=== PATIENT | female | born 1955 | race Caucasian/White ===

== ENCOUNTER 2016-06-19 17:13 | Emergency (ER) | payer BC ==
[~2016-06-19] VITALS: Ht 172.7 cm; Wt 72.6 kg
[~2016-06-19 17:13] MED LIST: ADVIL; MES400T; PROZAC
[2016-06-19 18:51] LABS: Basophils # (auto) 0 uL; Basophils % (auto) 0.3 % (0.0-2.0); Eosinophils # (auto) 0 uL; Hematocrit 47.7 % (36.0-46.0); Hemoglobin 15.5 g/dL (12.2-16.2); Lymphocytes # (auto) 2.3 uL; Lymphocytes % (auto) 35.4 % (10.0-50.0); Mean Corpuscular Hemoglobin 31.3 pg (28.0-32.0); Mean Corpuscular Hgb Conc. 32.6 g/dL (32.0-36.0); Mean Platelet Volume 7.4 fL (7.4-10.4); Monocytes # (auto) 0.3 uL; Monocytes % (auto) 4.1 % (0.0-12.0); Neutrophils # (auto) 3.9 uL; Neutrophils % (auto) 60.2 % (37.0-80.0); Platelet Count (auto) 436 10^3/uL (140-450); White Blood Cell 6.6 10^3/uL (4.4-10.8)
[2016-06-19 19:06] LABS: Albumin 3.9 g/dL (3.4-5.0); Calcium 8.3 mg/dL (8.5-10.1); Magnesium 2.2 mg/dL (1.6-2.6); Potassium 4.1 mmol/L (3.5-5.1)
[2016-06-19 19:08] LABS: BUN/Creatinine Ratio 12.3
[2016-06-19 19:12] LABS: Bilirubin, Total 0.5 mg/dL (0.2-1.0); Total Protein 8.3 g/dL (6.4-8.2)
[2016-06-19] MEDS ORDERED: THIAMINE INJ 100 MG, MULTIPLE VITAMIN 10 ML, FOLIC ACID 1 MG, MAGNESIUM SULF SDV 50% 8 ... IV ONE ×5 (19:15)
[2016-06-19 21:40] VITALS: BP 122/75
== END 2016-06-19 23:01 | disposition home or self-care (01) ==
LOC: EDUNIT# 17:13 → ER 17:18
DX: I47.1 Supraventricular tachycardia (principal); F10.129 Alcohol abuse with intoxication, unspecified; I10 Essential (primary) hypertension; K51.90 Ulcerative colitis, unspecified, without complications
CPT/HCPCS: 36415; 80053; 80320; 83735; 84484; 85025; 85049; 93005; 94761; 96365; 96366; 99285; J3411; J3475; J7030

== ENCOUNTER → 2020-09-17 | Day surgery (SDC) | payer BC ==
[~2020-09-17] VITALS: Ht 170.2 cm; Wt 72.6 kg
[~2020-09-17] MED LIST changes: -ADVIL; +ATOR20TA PO; +BACL20TA PO; +CHOL200029 PO; +GLYCOPYRROLATE 0.2 MG/ML 1ML VIAL ONE; +HYDROmorphone HCL 2 MG/ML VL IV PRN; +LACTATED RINGER'S 1,000 ML IV SCH; -MES400T; +METO-169 PO; +MIDAZOLAM HCL 1MG/1ML-2 ML VIAL ONE; +MONT5CHW23 PO; +NEOSTIGMINE 1 MG/ML INJ (10mg/10ML VIAL) IV ONE; +ONDANSETRON HCL 4 MG/2 ML VIAL IV ONE; +ONDANSETRON HCL 4 MG/2 ML VIAL IV PRN; +OXYC325T14 PO; +PROPOFOL 10 MG/ML 20 ML IV ONE; -PROZAC; +ROCURONIUM 10MG/ML 10ML VIAL IV ONE; +SERT-160 PO; +ceFAZolin 1GM/50ML 50 ML IV ONE; +fentaNYL CITRATE 100 MCG/2 ML VL ONE
[2020-09-17 07:33] LABS: Basophils # (auto) 0 10 ^3/uL (0-0.2); Basophils % (auto) 0.4 % (0.0-2.0); Eosinophils # (auto) 0.1 10 ^3/uL (0-0.8); Hematocrit 38.2 % (36.0-46.0); Hemoglobin 12.8 g/dL (12.2-16.2); Lymphocytes # (auto) 2.6 10 ^3/uL (0.4-5.4); Lymphocytes % (auto) 39.5 % (10.0-50.0); Mean Corpuscular Hemoglobin 30.7 pg (28.0-32.0); Mean Corpuscular Hgb Conc. 33.5 g/dL (32.0-36.0); Mean Corpuscular Volume 91.8 fL (80.0-100.0); Monocytes # (auto) 0.7 10 ^3/uL (0-1.3); Monocytes % (auto) 10.8 % (0.0-12.0); Neutrophils # (auto) 3.2 10 ^3/uL (1.6-8.6); Neutrophils % (auto) 47.3 % (37.0-80.0); Platelet Count (auto) 229 10^3/uL (140-450); Red Blood Cells 4.15 10^6/uL (4.0-5.20); Red Cell Distribution Width 13.6 % (11.8-14.3); White Blood Cell 6.7 10^3/uL (4.4-10.8)
[2020-09-17 07:48] LABS: INR 0.99 (0.9-1.15)
[2020-09-17 10:40] VITALS: BP 118/43
== END | disposition home or self-care (01) ==
LOC: SUR 06:16
PROVIDERS: ATTEND Obstetrics & Gynecology
DX: N85.00 Endometrial hyperplasia, unspecified (principal); E78.00 Pure hypercholesterolemia, unspecified; I10 Essential (primary) hypertension; F32.9 Major depressive disorder, single episode, unspecified; F99 Mental disorder, not otherwise specified; F41.9 Anxiety disorder, unspecified; Z98.890 Other specified postprocedural states; Z79.899 Other long term (current) drug therapy
CPT/HCPCS: 36415; 85025; 85610; 86850; 86900; 86901; J0690; J2250; J2405; J2704

== ENCOUNTER 2023-12-19 15:41 | Inpatient (IN) | payer BC ==
[~2023-12-19] VITALS: Ht 172.7 cm; Wt 78.2 kg
[~2023-12-19 15:41] MED LIST changes: -GLYCOPYRROLATE 0.2 MG/ML 1ML VIAL ONE; -HYDROmorphone HCL 2 MG/ML VL IV PRN; -LACTATED RINGER'S 1,000 ML IV SCH; -METO-169 PO; +METO-289 PO; -MIDAZOLAM HCL 1MG/1ML-2 ML VIAL ONE; +MONT5CHW12 PO; -MONT5CHW23 PO; -NEOSTIGMINE 1 MG/ML INJ (10mg/10ML VIAL) IV ONE; -ONDANSETRON HCL 4 MG/2 ML VIAL IV ONE; -ONDANSETRON HCL 4 MG/2 ML VIAL IV PRN; -PROPOFOL 10 MG/ML 20 ML IV ONE; -ROCURONIUM 10MG/ML 10ML VIAL IV ONE; -ceFAZolin 1GM/50ML 50 ML IV ONE; -fentaNYL CITRATE 100 MCG/2 ML VL ONE
[2023-12-19 17:20] LABS: Alanine Aminotransferase 184 U/L (7-40); Albumin 2.5 g/dL (3.2-4.8); Alkaline Phosphatase 341 U/L (46-116); Anion Gap 12 (5-15); Aspartate Aminotransferase 268 U/L (13-40); BUN/Creatinine Ratio 14.6 (10.0-20.0); Bilirubin, Total 4.6 mg/dL (0.2-1.0); Blood Urea Nitrogen 14 mg/dL (9-23); Calcium 8.3 mg/dL (8.7-10.4); Carbon Dioxide 24 mmol/L (20-30); Chloride 94 mmol/L (98-107); Glucose 116 mg/dL (74-106); Lipase 31 U/L (12-53); Magnesium 1.7 mg/dL (1.6-2.6); Potassium 2.9 mmol/L (3.5-5.1); Sodium 130 mmol/L (136-145); Total Protein 6.5 g/dL (5.7-8.2)
[2023-12-19 17:26] LABS: Lactic Acid w/Reflex 2.8 mmol/L (0.4-2.0)
[2023-12-19] MEDS: LACTULOSE 20Gm/30ML SOLN PO ONE (17:44)
[2023-12-19 17:45] LABS: Blood Alcohol < 3.0 mg/dL (<10)
[2023-12-19 18:34] LABS: Basophils # (auto) 0 10 ^3/uL (0-0.2); Basophils % (auto) 0.4 % (0.0-2.0); Eosinophils # (auto) 0 10 ^3/uL (0-0.8); Eosinophils % (auto) 0.1 % (0.0-7.0); Hematocrit 33.2 % (36.0-46.0); Lymphocytes # (auto) 0.7 10 ^3/uL (0.4-5.4); Lymphocytes % (auto) 14.8 % (10.0-50.0); Mean Corpuscular Hemoglobin 39.8 pg (28.0-32.0); Mean Corpuscular Volume 120.5 fL (80.0-100.0); Monocytes # (auto) 0.5 10 ^3/uL (0-1.3); Monocytes % (auto) 9.4 % (0.0-12.0); Neutrophils # (auto) 3.8 10 ^3/uL (1.6-8.6); Neutrophils % (auto) 75.3 % (37.0-80.0); Nucleated Red Blood Cells % 0.1 %; Red Blood Cells 2.75 10^6/uL (4.0-5.20); Red Cell Distribution Width 14.8 % (11.8-14.3)
[2023-12-19 18:41] LABS: Anisocytosis Slight; Macrocytosis Marked; Platelet Estimate Decreased
[2023-12-19 18:42] LABS: Stomatocytes Few
[2023-12-19] MEDS: PIPERACILLIN-TAZOB 3.375GM 100 ML IV ONE (19:45)
[2023-12-19] MEDS ORDERED: ACETAMINOPHEN 325 MG TAB PO PRN (21:15)
[2023-12-19] MEDS ORDERED: NITROGLYCERIN 0.4 MG SL TAB SL PRN (21:15)
[2023-12-19] MEDS: POTASSIUM CHL 20 Meq TABLET PO ONE (21:49)
[2023-12-19] MEDS: SODIUM CHLORIDE 0.9% 1,000 ML IV SCH (21:57)
[2023-12-20] VITALS (9 sets, daily range): BP systolic 100–118; BP diastolic 57–72; PULSE 73–89; RESP 16–20; TEMP 97.7–98.4; O2SAT 89–99
[2023-12-20] MEDS: LACTULOSE 20Gm/30ML SOLN PO SCH (01:19)
[2023-12-20] MEDS: DOXYCYCLINE 100 MG TAB/CAP PO SCH (01:19)
[2023-12-20] MEDS: GABAPENTIN 400 MG CAP PO SCH (01:19)
[2023-12-20] MEDS: ONDANSETRON HCL 4 MG/2 ML VIAL IV PRN (01:20)
[2023-12-20] MEDS: chlordiazePOXIDE HCL 25 MG CAP PO PRN (01:20)
[2023-12-20] MEDS: HYDROcodone-ACET 5/325MG TAB PO PRN (01:20)
[2023-12-20] MEDS: MORPHINE SULFATE INJ 2 MG/ml SYRG IV PRN (01:20)
[2023-12-20] MEDS: FOLIC ACID 1 MG, MAGNESIUM SULF SDV 50% 8 MEQ, MULTIPLE VITAMIN 10 ML, THIAMINE INJ 100... INJ ONE (01:30)
[2023-12-20] MEDS: POTASSIUM CHL 20MEQ/100ML 100 ML IV SCH (05:29)
[2023-12-20 06:17] LABS: Basophils # (auto) 0 10 ^3/uL (0-0.2); Basophils % (auto) 0.1 % (0.0-2.0); Eosinophils # (auto) 0 10 ^3/uL (0-0.8); Hemoglobin 9.5 g/dL (12.2-16.2); Nucleated Red Blood Cells % 0.1 %
[2023-12-20 06:21] LABS: Eosinophils % (auto) 0.1 % (0.0-7.0); Hematocrit 28.2 % (36.0-46.0); Lymphocytes # (auto) 0.8 10 ^3/uL (0.4-5.4); Lymphocytes % (auto) 17.4 % (10.0-50.0); Mean Corpuscular Hemoglobin 40.8 pg (28.0-32.0); Mean Corpuscular Hgb Conc. 33.8 g/dL (32.0-36.0); Mean Corpuscular Volume 120.5 fL (80.0-100.0); Monocytes # (auto) 0.5 10 ^3/uL (0-1.3); Monocytes % (auto) 11.4 % (0.0-12.0); Neutrophils # (auto) 3.3 10 ^3/uL (1.6-8.6); Red Blood Cells 2.34 10^6/uL (4.0-5.20); Red Cell Distribution Width 14.9 % (11.8-14.3); White Blood Cell 4.6 10^3/uL (4.4-10.8)
[2023-12-20 06:38] LABS: Alanine Aminotransferase 142 U/L (7-40); Alkaline Phosphatase 251 U/L (46-116); Anion Gap 9 (5-15); BUN/Creatinine Ratio 16.3 (10.0-20.0); Blood Urea Nitrogen 14 mg/dL (9-23); Calcium 7.6 mg/dL (8.7-10.4); Carbon Dioxide 25 mmol/L (20-30); Chloride 101 mmol/L (98-107); Glucose 95 mg/dL (74-106); Potassium 3.1 mmol/L (3.5-5.1)
[2023-12-20 06:40] LABS: Albumin 1.9 g/dL (3.2-4.8); Aspartate Aminotransferase 166 U/L (13-40); Bilirubin, Total 3.6 mg/dL (0.2-1.0); Total Protein 4.8 g/dL (5.7-8.2)
[2023-12-20 06:51] LABS: Sodium 135 mmol/L (136-145)
[2023-12-20] MEDS: POTASSIUM CHL 20MEQ/100ML 100 ML IV ONE (08:07)
[2023-12-20] MEDS: FOLIC ACID 1 MG TAB PO SCH (12:54)
[2023-12-20] MEDS: THIAMINE HCL 100 MG TAB PO SCH (12:54)
[2023-12-20] MEDS ORDERED: POTASSIUM CHL 20MEQ/100ML 100 ML IV SCH (17:00)
[2023-12-20] MEDS ORDERED: chlordiazePOXIDE HCL 5 MG CAP PO PRN (17:30)
[2023-12-20] MEDS: POTASSIUM CHL 20 Meq TABLET PO ONE (17:42)
[2023-12-20] MEDS ORDERED: OMEP20TA PO (18:02)
[2023-12-20] MEDS ORDERED: FURO20TA3 PO (18:02)
[2023-12-20] MEDS ORDERED: PERCOT PO (18:22)
[2023-12-20] MEDS ORDERED: PROM25TA10 PO (18:22)
[2023-12-20] MEDS ORDERED: THIA100T10 PO (18:22)
[2023-12-20] MEDS ORDERED: FOLI-119 PO (18:22)
[2023-12-20] MEDS ORDERED: GABAPENTIN 400 MG CAP PO SCH (22:00)
[2023-12-20] MEDS: ATORVASTATIN 20 MG TAB PO SCH (23:04)
[2023-12-21] VITALS (9 sets, daily range): BP systolic 87–110; BP diastolic 45–62; PULSE 54–101; RESP 16–20; TEMP 97.4–98.5; O2SAT 90–98
[2023-12-21] MEDS: PANTOPRAZOLE 40 MG TAB PO SCH (05:32)
[2023-12-21 07:04] LABS: Basophils # (auto) 0 10 ^3/uL (0-0.2); Eosinophils # (auto) 0 10 ^3/uL (0-0.8); Hemoglobin 9.9 g/dL (12.2-16.2); Monocytes # (auto) 0.7 10 ^3/uL (0-1.3); Monocytes % (auto) 14.6 % (0.0-12.0); Neutrophils # (auto) 3.1 10 ^3/uL (1.6-8.6); Nucleated Red Blood Cells % 0.2 %
[2023-12-21 07:07] LABS: Basophils % (auto) 0.3 % (0.0-2.0); Eosinophils % (auto) 0.7 % (0.0-7.0); Hematocrit 29.4 % (36.0-46.0); Mean Corpuscular Hemoglobin 41.3 pg (28.0-32.0); Mean Corpuscular Hgb Conc. 33.7 g/dL (32.0-36.0); Mean Corpuscular Volume 122.6 fL (80.0-100.0); Neutrophils % (auto) 63.4 % (37.0-80.0); Red Cell Distribution Width 15.6 % (11.8-14.3); White Blood Cell 4.8 10^3/uL (4.4-10.8)
[2023-12-21 07:26] LABS: Alanine Aminotransferase 136 U/L (7-40); Albumin 1.9 g/dL (3.2-4.8); Alkaline Phosphatase 267 U/L (46-116); Anion Gap 7 (5-15); Aspartate Aminotransferase 149 U/L (13-40); BUN/Creatinine Ratio 14.5 (10.0-20.0); Blood Urea Nitrogen 9 mg/dL (9-23); Calcium 7.7 mg/dL (8.7-10.4); Carbon Dioxide 23 mmol/L (20-30); Chloride 107 mmol/L (98-107); Glucose 96 mg/dL (74-106); Potassium 3.7 mmol/L (3.5-5.1); Sodium 137 mmol/L (136-145)
[2023-12-21 07:27] LABS: Bilirubin, Total 3.6 mg/dL (0.2-1.0); Total Protein 4.8 g/dL (5.7-8.2)
[2023-12-21] MEDS: SERTRALINE HCL 50 MG TAB PO SCH (09:17)
[2023-12-21] MEDS: POTASSIUM CHLORIDE 8 MEQ TAB PO SCH (09:17)
[2023-12-21] MEDS: METOPROLOL SUCCINATE XL 50 MG TAB PO SCH (09:18)
[2023-12-21] MEDS: SODIUM CHLORIDE 0.9% 1,000 ML IV SCH (15:00)
[2023-12-21] MEDS: HYDROcodone-ACET 5/325MG TAB PO PRN (15:40)
[2023-12-21] MEDS: ACETAMINOPHEN 325 MG TAB PO PRN (21:13)
[2023-12-22] VITALS (9 sets, daily range): BP systolic 97–130; BP diastolic 53–70; PULSE 77–93; RESP 16–20; TEMP 97.1–98.5; O2SAT 93–99
[2023-12-22 06:40] LABS: Basophils # (auto) 0 10 ^3/uL (0-0.2); Basophils % (auto) 0.2 % (0.0-2.0); Eosinophils # (auto) 0 10 ^3/uL (0-0.8); Lymphocytes # (auto) 1.2 10 ^3/uL (0.4-5.4); Monocytes # (auto) 0.6 10 ^3/uL (0-1.3); Nucleated Red Blood Cells % 0.2 %; White Blood Cell 3.7 10^3/uL (4.4-10.8)
[2023-12-22 06:45] LABS: Eosinophils % (auto) 0.7 % (0.0-7.0); Hematocrit 29.1 % (36.0-46.0); Hemoglobin 9.8 g/dL (12.2-16.2); Lymphocytes % (auto) 32.4 % (10.0-50.0); Mean Corpuscular Hemoglobin 41.2 pg (28.0-32.0); Mean Corpuscular Hgb Conc. 33.8 g/dL (32.0-36.0); Mean Corpuscular Volume 121.9 fL (80.0-100.0); Monocytes % (auto) 16.8 % (0.0-12.0); Neutrophils # (auto) 1.8 10 ^3/uL (1.6-8.6); Neutrophils % (auto) 49.9 % (37.0-80.0); Red Blood Cells 2.39 10^6/uL (4.0-5.20); Red Cell Distribution Width 15.8 % (11.8-14.3)
[2023-12-22 06:56] LABS: Alanine Aminotransferase 134 U/L (7-40); Alkaline Phosphatase 282 U/L (46-116); Anion Gap 7 (5-15); Aspartate Aminotransferase 146 U/L (13-40); BUN/Creatinine Ratio 18.2 (10.0-20.0); Blood Urea Nitrogen 10 mg/dL (9-23); Calcium 7.7 mg/dL (8.7-10.4); Carbon Dioxide 26 mmol/L (20-30); Chloride 108 mmol/L (98-107); Glucose 113 mg/dL (74-106); Potassium 3.6 mmol/L (3.5-5.1); Sodium 141 mmol/L (136-145)
[2023-12-22 06:57] LABS: Albumin 1.9 g/dL (3.2-4.8); Bilirubin, Total 3.3 mg/dL (0.2-1.0); Total Protein 4.7 g/dL (5.7-8.2)
[2023-12-22] MEDS: SPIRONOLACTONE 25 MG TAB PO SCH (09:33)
[2023-12-22] MEDS ORDERED: LACT10SO3 PO (10:43)
[2023-12-22] MEDS ORDERED: DOX100T PO (10:43)
[2023-12-22] MEDS ORDERED: METO25TA5 PO (10:43)
[2023-12-22] MEDS ORDERED: SPIR25TA PO (10:43)
[2023-12-23] VITALS (7 sets, daily range): BP systolic 112–138; BP diastolic 65–85; PULSE 62–95; RESP 18–20; TEMP 97.7–98.6; O2SAT 92–95
== END 2023-12-23 17:48 | disposition home health service (06) | DRG 432 ==
LOC: EDBD 15:41 → ER 15:41 → TELE 21:30 → TELE-EAST 12-20 08:46
PROVIDERS: ADMIT Internal Medicine; ATTEND Internal Medicine
DX: K70.10 Alcoholic hepatitis without ascites (principal); J15.69 Pneumonia due to other Gram-negative bacteria; J15.9 Unspecified bacterial pneumonia; K76.82 Hepatic encephalopathy; E86.0 Dehydration; E78.5 Hyperlipidemia, unspecified; E87.6 Hypokalemia; M51.36 Other intervertebral disc degeneration, lumbar region; E11.9 Type 2 diabetes mellitus without complications; E88.09 Other disorders of plasma-protein metabolism, not elsewhere classified; I10 Essential (primary) hypertension; F32.9 Major depressive disorder, single episode, unspecified; I27.20 Pulmonary hypertension, unspecified; G89.4 Chronic pain syndrome; K21.9 Gastro-esophageal reflux disease without esophagitis; F10.229 Alcohol dependence with intoxication, unspecified; K76.0 Fatty (change of) liver, not elsewhere classified; K82.8 Other specified diseases of gallbladder; K74.60 Unspecified cirrhosis of liver; I89.0 Lymphedema, not elsewhere classified; D69.59 Other secondary thrombocytopenia; Z79.4 Long term (current) use of insulin; Z79.899 Other long term (current) drug therapy; Z91.199 Patient's noncompliance with other medical treatment and regimen due to unspecified reason; Y90.0 Blood alcohol level of less than 20 mg/100 ml
CPT/HCPCS: 36415; 70450; 71045; 76705; 80053; 80320; 82140; 83605; 83690; 83735; 83880; 84132; 84484; 85025; 93971; 96365; 97110; 97116; 97163; 97530; 99291; G0378; J2405; J2543; J3480